=== PATIENT | female | born 1995 | race Caucasian/White ===

== ENCOUNTER 2023-06-22 06:21 | Inpatient (IN) ==
[2023-06-22] MEDS ORDERED: D5 1/2 NS 1,000 ML 1,000 ML IV SCH (06:42)
[2023-06-22] MEDS ORDERED: ANCEF VIAL 1 GRAM IVP ONE (06:42)
[2023-06-22] MEDS ORDERED: NOZIN NASAL SANITIZER TP ONE (06:46)
[2023-06-22] MEDS ORDERED: ANCEF VIAL 1 GRAM ONE (06:47)
[2023-06-22] MEDS ORDERED: NS 100 ML IV 100 ML ONE (06:47)
[2023-06-22] MEDS ORDERED: VERSED ONE (07:21)
[2023-06-22] MEDS ORDERED: DILAUDID INJ ONE (07:21)
[2023-06-22] MEDS ORDERED: PITOCIN ONE ×2 (07:21→09:15)
[2023-06-22] MEDS ORDERED: XYLOCAINE 2 % (PLAIN) ONE (07:23)
[2023-06-22] MEDS ORDERED: MARCAINE SPINAL ONE (07:23)
[2023-06-22] MEDS ORDERED: LR 1,000 ML IV 1,000 ML IV ONE (07:56)
[2023-06-22] MEDS ORDERED: BARHEMSYS INJ IVP PRN (09:03)
[2023-06-22] MEDS ORDERED: BENADRYL INJ 50 MG VIAL IVP PRN ×3 (09:03→10:23)
[2023-06-22] MEDS ORDERED: ZOFRAN INJ 4 MG VIAL IVP PRN ×3 (09:03→10:23)
[2023-06-22] MEDS ORDERED: DILAUDID INJ IVP PRN (09:03)
[2023-06-22] MEDS ORDERED: REGLAN INJ 10 MG VIAL IVP PRN ×2 (09:03→10:23)
[2023-06-22] MEDS ORDERED: PERCOCET TAB 5/325 MG PO PRN ×2 (09:04→10:23)
[2023-06-22] MEDS ORDERED: NARCAN INJ IVP PRN ×2 (09:04→10:23)
[2023-06-22] MEDS ORDERED: D5 1/2 NS 1,000 ML 1,000 ML IV ONE (09:15)
[2023-06-22] MEDS ORDERED: BARHEMSYS INJ ONE (09:29)
[2023-06-22] MEDS ORDERED: DROPERIDOL ONE (09:44)
[2023-06-22] MEDS ORDERED: HYPERRHO S/D (or RHOGAM) IM PRN (10:23)
[2023-06-22] MEDS ORDERED: D5 1/2 NS 1,000 ML 1,000 ML with PITOCIN 20 UNITS IV SCH ×2 (10:23)
[2023-06-22] MEDS ORDERED: MYLICON TAB 80 MG CHEW PO PRN (10:23)
[2023-06-22] MEDS ORDERED: ADACEL or BOOSTRIX TDaP VACCINE IM ONE (10:23)
[2023-06-22] MEDS ORDERED: TORADOL 30 MG VIAL IVP PRN (10:23)
[2023-06-23 05:25] LABS: HEMATOCRIT 27.5 % (36.0-47.0)
[2023-06-23 05:35] LABS: HEMOGLOBIN 9.2 g/dL (12.0-16.0)
[2023-06-23] MEDS ORDERED: PERCOCET TAB 5/325 MG PO PRN (06:24)
[2023-06-23] MEDS ORDERED: LEXAPRO ONE (09:05)
[2023-06-23] MEDS: PRENATAL PLUS PO SCH (09:10)
[2023-06-23] MEDS: LEXAPRO PO SCH (09:10)
[2023-06-23] MEDS: PriLOSEC PO SCH (09:10)
[2023-06-23] MEDS: MOTRIN TAB 800 MG PO PRN ×2 (09:11→19:32)
[2023-06-23] MEDS: BACTROBAN TOPICAL OINT TOP SCH ×4 (15:09→22:25)
[2023-06-23] MEDS ORDERED: COLACE CAP 100 MG PO SCH (21:00)
[2023-06-23 21:32] VITALS: RESP 20
[2023-06-24] MEDS: BACTROBAN TOPICAL OINT TOP SCH (05:58)
[2023-06-24] MEDS: MOTRIN TAB 800 MG PO PRN (06:06)
[2023-06-24] MEDS ORDERED: LEXAPRO ONE (08:10)
[2023-06-24] MEDS: PRENATAL PLUS PO SCH (08:52)
[2023-06-24] MEDS: LEXAPRO PO SCH (08:52)
[2023-06-24] MEDS: PriLOSEC PO SCH (08:52)
[2023-06-24 09:05] VITALS: BP 131/82; PULSE 113; TEMP 97.6; O2SAT 95
== END 2023-06-24 11:45 | disposition home or self-care (01) | DRG 787 ==
LOC: LD 06:21 → MED/SURG 09:59
PROVIDERS: ADMIT Specialist; ATTEND Specialist
DX: Z3A.38 38 weeks gestation of pregnancy; O99.343 Other mental disorders complicating pregnancy, third trimester; O36.0930 Maternal care for other rhesus isoimmunization, third trimester, not applicable or unspecified; O34.211 Maternal care for low transverse scar from previous cesarean delivery; R79.89 Other specified abnormal findings of blood chemistry; F41.8 Other specified anxiety disorders; O24.410 Gestational diabetes mellitus in pregnancy, diet controlled; O99.613 Diseases of the digestive system complicating pregnancy, third trimester; Z37.0 Single live birth; K21.9 Gastro-esophageal reflux disease without esophagitis; N85.8 Other specified noninflammatory disorders of uterus; Z01.812 Encounter for preprocedural laboratory examination